=== PATIENT | male | born 1995 | race Caucasian/White ===

== ENCOUNTER 2017-10-17 18:59 | Emergency (ER) | payer BC ==
[~2017-10-17] VITALS: Ht 180.3 cm; Wt 67.0 kg
[2017-10-17 19:03] VITALS: TEMP 36.7; Ht 180.3 cm; Wt 67.0 kg
--- NOTE | 2017-10-17 20:58 | DIAGNOSTIC IMAGING REPORT ---
CHEST ONE VIEW PORTABLE CLINICAL HISTORY: CHEST PAIN COMPARISON STUDY: No previous studies for comparison. FINDINGS: Lung volumes are normal. No pneumothorax or pleural effusion is noted. There is no consolidation. Cardiac size is normal. Mediastinal contours are normal. There is no evidence for pulmonary edema. IMPRESSION: No acute cardiopulmonary findings. Electronically signed by: Jamil Thao M.D. 10/17/2017 8:56 PM Dictated Date/Time: 10/17/2017 8:56 PM
[2017-10-17 21:04] LABS: HEMATOCRIT 43.7 % (42-52); HEMOGLOBIN 15.9 g/dL (14.0-18.0); MEAN CELL VOLUME 85.7 fL (80-100); MEAN CORPUSCULAR HEMOGLOBIN 31.2 pg (25-34); MEAN CORPUSCULAR HGB CONC 36.4 g/dl (32-36); MEAN PLATELET VOLUME 11.1 fL (7.4-10.4); PLATELET COUNT 222 K/uL (130-400); RED CELL DISTRIBUTION WIDTH CV 13.6 % (11.5-14.5); RED CELL DISTRIBUTION WIDTH SD 42.7 fL (36.4-46.3); WHITE BLOOD COUNT 7.52 K/uL (4.8-10.8)
[2017-10-17] MEDS ORDERED: ALPR0.25 PO (21:05)
[2017-10-17 21:32] LABS: BLOOD UREA NITROGEN 7 mg/dl (7-18); CALCIUM 8.8 mg/dl (8.5-10.1); CARBON DIOXIDE 30 mmol/L (21-32); CREATININE 0.84 mg/dl (0.60-1.40); GLUCOSE 94 mg/dl (70-99); POTASSIUM 3.7 mmol/L (3.5-5.1); SODIUM 139 mmol/L (136-145)
[2017-10-17 22:14] VITALS: BP 116/71; PULSE 68; O2SAT 98
--- NOTE | 2017-10-18 15:33 | EMERGENCY ROOM VISIT NOTE ---
History Report prepared by Georgi: Polo Tate Under the Supervision of: Dr. Tony Andrea M.D. First contact with patient: 20:24 Chief Complaint: CHEST PAIN Stated Complaint: CHEST PAINS Nursing Triage Summary: Patient presents to triage for c/o left sided chest pain with radiation into left arm that began 3 months ago, but states have gotten worse over the past few days. Patient was sent from [facility]. History of Present Illness The patient is a 21 year old male who presents to the Emergency Room with complaints of intermittent sharp chest pain beginning three months ago. The patient states that he had an anxiety attack three years ago and went to the hospital for chest pain. He notes that the doctors told him that his chest pain was caused by anxiety and stress and reports that his pain lasted intermittently for the next six months. The patient states that he smoked marijuana three months ago and had another anxiety attack. He notes that he has been having intermittent chest pains since then. He reports that his pain only lasts for about a minute. The patient states that he also occasionally gets tightness in his left arm and back when his chest pain begins. He notes that when he experiences his chest pain he typically develops a fast heart rate. He also complains of SOB. He denies any leg swelling, cough, congestion, and fever. He rates his pain as an 8/10 at his worst. He reports that he has no history of blood clots. The patient states that he has had two six hour drives to [place] in the last two months. Source of History: patient Onset: three months ago Position: chest Symptom Intensity: 8/10 Quality: sharp Timing: intermittent Associated Symptoms: + SOB, No fevers, No cough Note: The patient states that he gets tightness in his left arm and back, as well as a fast heart rate. He denies any swelling and congestion. Review of Systems See HPI for pertinent positives & negatives. A total of 10 systems reviewed and were otherwise negative. Past Medical & Surgical Medical Problems: (1) Anxiety attack Family History No pertinent family history stated. Social History Smoking Status: Current Every Day Smoker Marital Status: single Occupation Status: employed Current/Historical Medications Scheduled PRN Alprazolam (Xanax), 0.25 MG PO DAILY PRN for Anxiety Allergies Coded Allergies: No Known Allergies (Unverified , 10/17/17) Physical Exam Vital Signs Date Time Temp Pulse Resp B/P (MAP) Pulse Ox O2 Delivery O2 Flow Rate FiO2 10/17/17 22:14 68 14 116/71 98 10/17/17 20:54 62 15 125/79 99 Room Air 10/17/17 20:54 62 10/17/17 19:03 36.7 68 18 134/90 100 Room Air Physical Exam GENERAL: Patient is in no acute distress. HEENT: No acute trauma, normocephalic atraumatic, mucous membranes moist, no nasal congestion, no scleral icterus. NECK: No stridor, no adenopathy, no meningismus, trachea is midline. LUNGS: Clear to auscultation bilaterally, no wheeze, no rhonchi, breath sounds equal. HEART: Without murmurs gallops or rubs, regular rate and rhythm. CHEST: Nontender chest wall. ABDOMEN: Soft, nontender, bowel sounds positive, no hernias, no peritonitis. EXTREMITIES: No cyanosis or edema, full range of motion of all the joints without pain or difficulty, no signs for acute trauma. NEUROLOGIC: Oriented x 3, no acute motor or sensory deficits, no focal weakness. SKIN: No rash, no jaundice, no diaphoresis. Medical Decision & Procedures ER Provider Diagnostic Interpretation: Radiology results as stated below per my review and radiologist interpretation: CHEST ONE VIEW PORTABLE FINDINGS: Lung volumes are normal. No pneumothorax or pleural effusion is noted. There is no consolidation. Cardiac size is normal. Mediastinal contours are normal. There is no evidence for pulmonary edema. IMPRESSION: No acute cardiopulmonary findings. Electronically signed by: Jamil Thao M.D. 10/17/2017 8:56 PM Laboratory Results 10/17/17 20:45 10/17/17 20:45 Test 10/17/17 20:45 10/17/17 20:51 Red Blood Count 5.10 M/uL (4.7-6.1) Mean Corpuscular Volume 85.7 fL (80-100) Mean Corpuscular Hemoglobin 31.2 pg (25-34) Mean Corpuscular Hemoglobin Concent 36.4 g/dl (32-36) RDW Standard Deviation 42.7 fL (36.4-46.3) RDW Coefficient of Variation 13.6 % (11.5-14.5) Mean Platelet Volume 11.1 fL (7.4-10.4) Anion Gap 6.0 mmol/L (3-11) Est Creatinine Clear Calc Drug Dose 131.8 ml/min Estimated GFR () 145.1 Estimated GFR (Non- 125.2 BUN/Creatinine Ratio 8.5 (10-20) Calcium Level 8.8 mg/dl (8.5-10.1) Troponin I < 0.015 ng/ml (0-0.045) Bedside D-Dimer 32 ng/mlFEU (0-450) Laboratory results reviewed by me. ECG Per My Interpretation Indication: chest pain Rate (beats per minute): 65 Rhythm: sinus rhythm Findings: no ectopy, other (No ST elevation, no PVCs) ED Course 2024: The patient was evaluated in room A2. A complete history and physical exam was performed. 2203: Reevaluated the patient. Discussed results and discharge instructions: he verbalized understanding and agreement. The patient is ready for discharge. Medical Decision Differential diagnoses include: anxiety, musculoskeletal pain, PE, TN, aortic dissection, pneumothorax, and pericarditis. There is no leukocytosis or worrisome anemia. No significant electrolyte abnormality or kidney failure. EKG shows a normal sinus rhythm, no acute ischemia. Cardiac enzyme testing 1 is not consistent with acute cardiac injury. Chest film does not show pneumonia, pneumothorax or mediastinal widening. D-dimer testing is negative. With a negative d-dimer and my low suspicion for PE, I will stop the workup for this diagnosis. The patient presents with fleeting very short-lived chest pain that has been ongoing for some time. His workup is benign. He has had similar pain before associated with anxiety. The patient's pain is likely musculoskeletal and/or anxiety related. He was reassured. He is being discharged home and can return if worsening. Blood Pressure Screening Patient's blood pressure: Normal blood pressure Blood pressure disposition: Did not require urgent referral Impression Primary Impression: Left sided chest pain Scribe Attestation The scribe's documentation has been prepared under my direction and personally reviewed by me in its entirety. I confirm that the note above accurately reflects all work, treatment, procedures, and medical decision making performed by me. Departure Information Dispostion Home / Self-Care Referrals No Doctor, Assigned (PCP) Forms HOME CARE DOCUMENTATION FORM, IMPORTANT VISIT INFORMATION Patient Instructions My [facility] Additional Instructions lab testing was all ok ECG and chest film were ok return if worsening
== END 2017-10-17 22:15 | disposition home or self-care (01) ==
LOC: C.EDB 19:03 → C.EDA 22:15
DX: R07.9 Chest pain, unspecified (principal); F41.8 Other specified anxiety disorders; F17.200 Nicotine dependence, unspecified, uncomplicated